=== PATIENT | female | born 1945 | race Caucasian/White ===

== ENCOUNTER 2021-04-06 11:25 | Outpatient (CLI) | payer MEDICARE, OTHER, SELFPAY ==
--- NOTE | ~2021-04-06 | MM_ITS ---
EXAMINATION: MM screening [facility] BI w ras HISTORY: Screening mammogram TECHNIQUE: Craniocaudal and mediolateral oblique 3-D tomosynthesis images were obtained and synthetic 2-D images were generated. CAD analysis was submitted and interpreted. COMPARISON: 02/17/2019, 06/14/2018, 06/03/2018 BREAST PARENCHYMAL COMPOSITION: The breasts are heterogeneously dense, which may obscure small masses . FINDINGS: There is no evidence of suspicious mass, calcification, or architectural distortion to sugg est malignancy in either breast. There has been no suspicious interval change. IMPRESSION: 1. No mammographic evidence of malignancy. 2. Recommend routine screening mammography in one year. BI-RADS Category 1: Negative Reviewed, dictated and finalized at location A.
== END 2021-04-06 11:26 | disposition home or self-care (01) ==
LOC: ANHIMG 11:29
PROVIDERS: PCP Internal Medicine; Visit Provider Internal Medicine
DX: Z12.31 Encounter for screening mammogram for malignant neoplasm of breast (principal)
CPT/HCPCS: 77063; 77067

== ENCOUNTER 2021-06-29 09:55 | Outpatient (CLI) | payer MEDICARE, OTHER, SELFPAY ==
--- NOTE | ~2021-06-29 | DEXA_ITS ---
Bone Density Report Name: ANGELI CRAMER Age: 76 Sex: Female Ethnicity: White Date of : 1945 Indication: postmenopausal; parental hip fracture; height loss; Referring Provider: GOVIND, HARRIET Erazo Study: Bone densitometry was performed. Exam Date: June 29, 2021 Accession number: [id number] Bone Density: Region BMD T-score Z-score Classification AP Spine (L1, L3) 1.379 3.3 5.7 Normal Femoral Neck (Left) 0.792 -0.5 1.6 Normal Total Hip (Left) 0.948 0.0 1.9 Normal Total Hip Bilateral Avg 0.944 0.0 1.9 Normal Femoral Neck (Right) 0.778 -0.6 1.5 Normal Total Hip (Right) 0.938 0.0 1.8 Normal World Health Organization criteria for BMD impression classify patients as: Normal (T-score at or above -1.0), Osteopenia (T-score between -1.0 and -2.5), or Osteoporosis (T-score at or below -2.5). 10-year Fracture Risk: FRAX not reported because: All T-scores for Spine Total, Hip Total, Femoral Neck at or above -1.0 Previous Exams: Region Exam Age BMD T-score BMD Change BMD Change Date g/cm2 vs Baseline vs Previous AP Spine(L1, L3) 06/29/2021 76 1.379 3.3 0.076(5.8%)# 0.073(5.6%)* 05/29/2016 71 1.306 2.7 0.003(0.2%)# 0.003(0.2%)# 03/15/2012 67 1.303 2.6 Total Hip(Left) 06/29/2021 76 0.948 0.0 0.000(0.0%)# -0.005(-0.5%) 06/03/2018 73 0.953 0.1 0.006(0.6%)# -0.010(-1.1%) 05/29/2016 71 0.963 0.2 0.016(1.7%)# 0.016(1.7%)# 03/15/2012 67 0.947 0.0 Total Hip(Right) 06/29/2021 76 0.938 0.0 -0.021(-2.2%)# -0.009(-1.0%) 06/03/2018 73 0.947 0.0 -0.012(-1.2%)# 0.003(0.3%) 05/29/2016 71 0.944 0.0 -0.015(-1.6%)# -0.015(-1.6%)# 03/15/2012 67 0.959 0.1 *Denotes significance at 95% confidence level, LSC for AP Spine = 0.022 g/cm2, LSC for Total Hip = 0.027 g/cm2 Clinical Information Provided by Patient: Parent has had a hip fracture Patient maximum height was 62 Menopause Age: 50 No regular weight bearing exercise Onset of menses at age 14 Number of children 2 Impression: The patient has normal bone mass. The patient has risk factors, including: parental hip fracture. No significant bone loss was observed. Discussion: BONE DENSITY IS ABOVE THE MINIMUM DESIRABLE LEVEL AT ALL SKELETAL SITES TESTED. This patient?s bone mineral density is above the minimum desirable level (T-score -1.0 or better) at all sites measured. The patient should follow a healthful lifestyle (good n
== END 2021-06-29 09:56 | disposition home or self-care (01) ==
LOC: ANHIMG 09:57
PROVIDERS: PCP Internal Medicine; Visit Provider Internal Medicine
DX: M81.0 Age-related osteoporosis without current pathological fracture (principal)
CPT/HCPCS: 77080

== ENCOUNTER 2023-10-05 09:26 | Outpatient (CLI) | payer MEDICARE, OTHER, SELFPAY ==
--- NOTE | ~2023-10-05 | DEXA_ITS ---
Bone Density Report Name: ANGELI CRAMER Age: 78 Sex: Female Ethnicity: White Date of : 1945 Indication: postmenopausal; screening for osteoporosis; parental hip fracture; height loss; Referring Provider: GOVIND, HARRIET Erazo Study: Bone densitometry was performed. Exam Date: October 05, 2023 Accession number: [id number] Bone Density: Region BMD T-score Z-score Classification AP Spine(L1-L4) 1.280 2.1 4.7 Normal Femoral Neck (Left) 0.840 -0.1 2.2 Normal Total Hip (Left) 0.968 0.2 2.2 Normal Femoral Neck (Right) 0.816 -0.3 1.9 Normal Total Hip (Right) 0.977 0.3 2.3 Normal Total Hip Mean 0.973 0.3 2.3 Normal World Health Organization criteria for BMD impression classify patients as: Normal (T-score at or above -1.0), Osteopenia (T-score between -1.0 and -2.5), or Osteoporosis (T-score at or below -2.5). 10-year Fracture Risk: FRAX not reported because: All T-scores for Spine Total, Hip Total, Femoral Neck at or above -1.0 Clinical Information Provided by Patient: Parent has had a hip fracture Patient maximum height was 62 Menopause Age: 50 No regular weight bearing exercise Drinks caffeinated beverages Onset of menses at age 13 Number of children 2 Impression: The patient has normal bone mass. The patient has risk factors, including: parental hip fracture. Discussion: BONE DENSITY IS ABOVE THE MINIMUM DESIRABLE LEVEL AT ALL SKELETAL SITES TESTED. This patient?s bone mineral density is above the minimum desirable level (T-score -1.0 or better) at all sites measured. The patient should follow a healthful lifestyle (good nutrition with adequate calcium and vitamin D, and appropriate weight-bearing exercise). Follow-Up: Consider repeating this study in 5 years or sooner if there is some new clinical indication. Reported by: MINI on 10/05/2023 10:23:00 AM. Reviewed, dictated and finalized at location AAllan LYNN
--- NOTE | ~2023-10-05 | MM_ITS ---
EXAMINATION: MM screening [facility] BI w ras HISTORY: Screening TECHNIQUE: Craniocaudal and mediolateral oblique 3-D tomosynthesis images were obtained and synthetic 2-D images were generated. CAD analysis was submitted and interpreted. COMPARISON: Comparison to multiple prior studies sequentially, with oldest reviewed study dated 12/13. BREAST PARENCHYMAL COMPOSITION: Dense: The breasts are heterogeneously dense, which may obscure small masses FINDINGS: There is no evidence of suspicious mass, calcification, or architectural distortion to sugg est malignancy in either breast. There has been no suspicious interval change. IMPRESSION: 1. No mammographic evidence of malignancy. 2. Recommend routine screening mammography in one year. BI-RADS Category 1: Negative Reviewed, dictated and finalized at location A.
== END 2023-10-05 09:27 | disposition home or self-care (01) ==
LOC: ANHIMG 09:27
PROVIDERS: PCP Internal Medicine; Visit Provider Internal Medicine
DX: Z12.31 Encounter for screening mammogram for malignant neoplasm of breast (principal); M81.0 Age-related osteoporosis without current pathological fracture; Z13.820 Encounter for screening for osteoporosis
CPT/HCPCS: 77063; 77067; 77080